=== PATIENT | female | born 1940 | race Two or more races ===

== ENCOUNTER 2018-02-13 10:30 | Outpatient (CLI) | payer MEDICARE | END 2018-02-13 23:59 | disposition home or self-care (01) | LOC: WOU 10:30 | PROVIDERS: ATTEND Surgery | DX: S00.83XA Contusion of other part of head, initial encounter (principal); H05.223 Edema of bilateral orbit; W18.30XA Fall on same level, unspecified, initial encounter; Y92.89 Other specified places as the place of occurrence of the external cause; R60.0 Localized edema; Z91.81 History of falling; Z95.0 Presence of cardiac pacemaker; Z85.3 Personal history of malignant neoplasm of breast | CPT/HCPCS: A6402; G0463 ==

== ENCOUNTER 2018-02-20 12:48 | Outpatient (CLI) | payer MEDICARE | END 2018-02-20 23:59 | disposition home or self-care (01) | LOC: WOU 12:48 | PROVIDERS: ATTEND Surgery | DX: S00.83XD Contusion of other part of head, subsequent encounter (principal); W19.XXXD Unspecified fall, subsequent encounter; H05.223 Edema of bilateral orbit; R60.0 Localized edema; Z85.3 Personal history of malignant neoplasm of breast; I25.2 Old myocardial infarction; Z91.81 History of falling | CPT/HCPCS: G0463 ==

== ENCOUNTER 2018-03-06 12:45 | Outpatient (CLI) | payer MEDICARE | END 2018-03-06 23:59 | disposition home or self-care (01) | LOC: WOU 12:45 | PROVIDERS: ATTEND Surgery | DX: S00.83XD Contusion of other part of head, subsequent encounter (principal); W19.XXXD Unspecified fall, subsequent encounter; H05.223 Edema of bilateral orbit; Z91.81 History of falling; R60.0 Localized edema; I25.2 Old myocardial infarction; Z85.3 Personal history of malignant neoplasm of breast | CPT/HCPCS: A6402; G0463 ==